=== PATIENT | female | born 1980 | race Caucasian/White ===

== ENCOUNTER 2019-06-27 09:51 | Emergency (ER) | payer MEDICAID ==
[~2019-06-27] VITALS: Ht 157.5 cm; Wt 60.3 kg
[2019-06-27 09:59] VITALS: BP 107/69
--- NOTE | 2019-06-27 10:09 | NUR ---
PT CAME INTO THE ED C/O HEADACHE 05/18, +NV X 2 DAYS. PT AAOX4, VSS, BREATHING EVEN AND UNLABORED ON ROOM AIR W/ NAD. PT CONNECTED TO THE MONITOR.
[2019-06-27] MEDS ORDERED: KETOROLAC TROMETHAMINE INJ 60 MG/2 ML VIAL IM ONE ×2 (10:21→10:30)
[2019-06-27] MEDS ORDERED: ONDANSETRON 4 MG TAB.RAPDIS ONE (10:22)
[2019-06-27] MEDS ORDERED: HYDROCODONE/APAP 5/325MG 1 EACH TABLET ONE (10:22)
[2019-06-27] MEDS ORDERED: HYDROCODONE/APAP 5/325MG 1 EACH TABLET PO ONE (10:30)
[2019-06-27] MEDS ORDERED: ONDANSETRON 4 MG TAB.RAPDIS PO ONE (10:30)
--- NOTE | 2019-06-27 10:35 | NUR ---
PT TAKEN TO CT
--- NOTE | 2019-06-27 10:38 | NUR ---
PT BACK FROM CT
--- NOTE | 2019-06-27 11:19 | NUR ---
Patient discharged to home in stable condition. Written and verbal after care instructions given. Patient verbalizes understanding of instruction.
== END 2019-06-27 11:19 | disposition home or self-care (01) ==
LOC: ER 09:57
DX: R51 Headache (principal)
CPT/HCPCS: 70450; 84703; 96372; 99284; J1885; Q0162